=== PATIENT | female | born 1965 | race Caucasian/White ===

== ENCOUNTER 2020-12-11 07:13 | Outpatient (CLI) | payer OTHER, SELFPAY ==
[2020-12-11 07:55] LABS: Glucose 116 mg/dL (65-105)
== END 2020-12-11 07:14 | disposition home or self-care (01) ==
PROVIDERS: PCP Family Medicine; Visit Provider Nurse Practitioner Family
DX: R73.09 Other abnormal glucose (principal)
CPT/HCPCS: 36415; 82607; 82947

== ENCOUNTER 2023-02-12 07:23 | Outpatient (CLI) | payer OTHER, SELFPAY ==
[2023-02-12 08:43] LABS: Hematocrit 41.3 % (37.0-47.0); Hemoglobin 13.6 g/dL (12.0-15.0); Mean Corpuscular HGB Conc 32.9 g/dl (32-36); Mean Corpuscular Hemoglobin 28.9 pg (26-34); Mean Corpuscular Volume 87.7 fl (80-100); Mean Platelet Volume 10.9 fl (7.4-10.4); Platelet Count Result 240 k/mm3 (150-375); Red Blood Count 4.71 M/mm3 (4.2-5.4); Red Cell Distribution Width 13.9 % (11.5-14.5); White Blood Count 4.9 K/mm3 (4.5-10.0)
[2023-02-12 09:08] LABS: Alanine Aminotransferase 27 U/L (6-35); Albumin Level 4.4 g/dL (3.5-5.1); Alkaline Phosphatase 81 U/L (38-126); Anion Gap 6 mmol/L (8-16); Aspartate Amino Transferase 31 U/L (14-36); Bilirubin,Total 0.7 mg/dL (0.2-1.3); Blood Urea Nitrogen 14 mg/dL (7-17); Calcium 8.7 mg/dL (8.4-10.2); Carbon Dioxide 31 mmol/L (22-30); Chloride 103 mmol/L (98-107); Cholesterol 133 mg/dL (0-200); Estimated Glomerular Filt Rate > 60; Glucose 110 mg/dL (65-110); HDL Direct 37 mg/dL; Potassium 4.2 mmol/L (3.4-5.0); Sodium 140 mmol/L (137-145); Triglycerides 105 mg/dL (<150)
[2023-02-12 09:19] LABS: LDL Cholesterol Direct 74 mg/dL
== END 2023-02-12 07:24 | disposition home or self-care (01) ==
PROVIDERS: PCP Family Medicine; Visit Provider Nurse Practitioner Family
DX: E78.5 Hyperlipidemia, unspecified (principal); R73.09 Other abnormal glucose; E55.9 Vitamin D deficiency, unspecified; E53.8 Deficiency of other specified B group vitamins; F41.9 Anxiety disorder, unspecified
CPT/HCPCS: 36415; 80053; 80061; 82306; 82607; 83036; 85027

== ENCOUNTER 2023-04-15 06:02 | Day surgery (SDC) | payer OTHER, SELFPAY ==
[2023-03-01 13:28] VITALS: BMI 33.5
[2023-03-30 10:50] VITALS: BMI 33.5
--- NOTE | 2023-04-14 13:49 | WPDANESEPPF ---
Anes - Initial Pre Proc Eval Procedure: Operation Date: 04/15/23 07:30 Proposed Procedures p Screening Colonoscopy - Jordan Arango MD Date/Time: 04/14/23 13:49 Surgeon: Jordan Arango MD Pre Op Diagnosis: Neoplasm Screening Patient Data Age: 57 Gender: F Height: 1.6 m Weight: 86 kg Allergies Allergy/AdvReac Type Severity Reaction Status Date / Time cephalexin Allergy Mild anxiety Verified 04/15/23 06:16 ciprofloxacin Allergy Mild Anxiety Verified 04/15/23 06:16 nitrofurantoin Allergy Mild anxiety Verified 04/15/23 06:16 fluoxetine Allergy Unknown Anxiety Verified 04/15/23 06:16 trimethoprim Allergy Unknown Anxiety Verified 04/15/23 06:16 Home Medications Medication Instructions Recorded Confirmed Type alprazolam 1 mg tablet,extended 1 mg PO DAILY 02/11/23 04/15/23 History release 24 hr (Xanax XR) estradiol 0.01% (0.1 mg/gram) 1 g vaginal 2XW #42.5 grams 02/11/23 04/15/23 Rx vaginal cream estradiol-norethindrone acet 0.5 1 tablet PO DAILY #84 tabs 02/11/23 04/15/23 Rx mg-0.1 mg tablet omeprazole 40 mg capsule,delayed 40 mg PO DAILY #90 caps 02/11/23 04/15/23 Rx release rosuvastatin 40 mg tablet 40 mg PO DAILY #90 tabs 02/11/23 04/15/23 Rx solifenacin 10 mg tablet 10 mg PO DAILY #90 tabs 02/11/23 04/15/23 Rx sulfamethoxazole 800 See Rx Instructions PO .COMPLEX 02/11/23 04/15/23 Rx mg-trimethoprim 160 mg tablet #15 tabs (Bactrim DS) semaglutide 0.25 mg or 0.5 mg (2 0.25 mg (0.368 mL) subcut WEEKLY 02/17/23 04/15/23 Rx mg/3 mL) subcutaneous pen injector #3 mL (Ozempic) cholecalciferol (vitamin D3) 125 125 mcg PO DAILY 03/30/23 04/15/23 History mcg (5,000 unit) tablet (Vitamin D3) cholecalciferol (vitamin D3) 125 125 mcg PO DAILY 03/30/23 04/15/23 History mcg (5,000 unit) tablet (Vitamin D3) vitamin B complex (B 1 tablet PO DAILY 03/30/23 04/15/23 History Complex-Vitamin B12 tablet) Patient hx anesthesia problems: none Family hx anesthesia problems: none Results Review: All pre-operative results and documents have been reviewed as part of the pre-operative evaluation. [facility] Past Medical History Medical History Abnormal weight gain Acute non-recurrent maxillary sinusitis Acute UTI Amenorrhea BMI 32.0-32.9,adult BMI 33.0-33.9,adult BMI greater than 30 Dietary counseling and surveillance (06/01/16) Elevated glucose Encounter for screening for lipoid disorders Hot flashes due to menopause Mixed hyperlipidemia Preoperative evaluation to rule out surgical contraindication Routine physical examination Screening for diabetes mellitus Screening for thyroid disorder Unspecified urinary incontinence Family History Family History Father Hypertension Family history of coronary artery disease Family history of kidney disease Family history of diabetes mellitus in first degree relative Family history of heart disease in male family member before age 55 Hyperlipidemia Mother Hypertension Hyperlipidemia Sibling Hypertension Family history of diabetes mellitus in first degree relative Social History Social History Smoking status: Never smoker Alcohol intake: current Drinks per week: 6 Substance use: never Substance use type: does not use Lack of Transportation: No Lack of Food: Never True Current Housing: I Have Housing Concerned About Future Housing: No Difficulty Paying Gas/Electric Bills: No Difficulty Paying for Meds: No Currently Unemployed: No Education: Master's Degree or Higher Difficulty w/ Childcare or Family Care: No Living arrangements: with family Occupation/Education: occupation 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
--- NOTE | 2023-04-14 21:46 | PM.HPGS ---
History of Present Illness History of Present Illness Consent: Risks, benefits, and alternatives have been discussed and questions answered. Patient agrees to proceed with procedure. Chief complaint: Neoplasm Screening Narrative: Lila Briggs is a 57 year old female who is referred for colon cancer screening.She had polyp removed in 2012 Review of Systems Review of Systems: All systems reviewed & are unremarkable except as noted in HPI and below PMFSH Past Medical History Medical History Abnormal weight gain Acute non-recurrent maxillary sinusitis Acute UTI Amenorrhea BMI 32.0-32.9,adult BMI 33.0-33.9,adult BMI greater than 30 Dietary counseling and surveillance (06/01/16) Elevated glucose Encounter for screening for lipoid disorders Hot flashes due to menopause Mixed hyperlipidemia Preoperative evaluation to rule out surgical contraindication Routine physical examination Screening for diabetes mellitus Screening for thyroid disorder Unspecified urinary incontinence Family History Family History Father Hypertension Family history of coronary artery disease Family history of kidney disease Family history of diabetes mellitus in first degree relative Family history of heart disease in male family member before age 55 Hyperlipidemia Mother Hypertension Hyperlipidemia Sibling Hypertension Family history of diabetes mellitus in first degree relative Social History Social History Smoking status: Never smoker Alcohol intake: current Drinks per week: 6 Substance use: never Substance use type: does not use Lack of Transportation: No Lack of Food: Never True Current Housing: I Have Housing Concerned About Future Housing: No Difficulty Paying Gas/Electric Bills: No Difficulty Paying for Meds: No Currently Unemployed: No Education: Master's Degree or Higher Difficulty w/ Childcare or Family Care: No Living arrangements: with family Occupation/Education: occupation 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 by the patient): Female Spiritual care concerns: No Meds Home Medications and Allergies Home Medications Medication Instructions Recorded Confirmed Type alprazolam 1 mg tablet,extended 1 mg PO DAILY 02/11/23 04/15/23 History release 24 hr (Xanax XR) estradiol 0.01% (0.1 mg/gram) 1 g vaginal 2XW #42.5 grams 02/11/23 04/15/23 Rx vaginal cream estradiol-norethindrone acet 0.5 1 tablet PO DAILY #84 tabs 02/11/23 04/15/23 Rx mg-0.1 mg tablet omeprazole 40 mg capsule,delayed 40 mg PO DAILY #90 caps 02/11/23 04/15/23 Rx release rosuvastatin 40 mg tablet 40 mg PO DAILY #90 tabs 02/11/23 04/15/23 Rx solifenacin 10 mg tablet 10 mg PO DAILY #90 tabs 02/11/23 04/15/23 Rx sulfamethoxazole 800 See Rx Instructions PO .COMPLEX 02/11/23 04/15/23 Rx mg-trimethoprim 160 mg tablet #15 tabs (Bactrim DS) semaglutide 0.25 mg or 0.5 mg (2 0.25 mg (0.368 mL) subcut WEEKLY 02/17/23 04/15/23 Rx mg/3 mL) subcutaneous pen injector #3 mL (Ozempic) cholecalciferol (vitamin D3) 125 125 mcg PO DAILY 03/30/23 04/15/23 History mcg (5,000 unit) tablet (Vitamin D3) cholecalciferol (vitamin D3) 125 125 mcg PO DAILY 03/30/23 04/15/23 History mcg (5,000 unit) tablet (Vitamin D3) vitamin B complex (B 1 tablet PO DAILY 03/30/23 04/15/23 History Complex-Vitamin B12 tablet) Allergies Allergy/AdvReac Type Severity Reaction Status Date / Time cephalexin Allergy Mild anxiety Verified 04/15/23 06:16 ciprofloxacin Allergy Mild Anxiety Verified 04/15/23 06:16 nitrofurantoin Allergy Mild anxiety Verified 04/15/23 06:16 fluoxetine Allergy Unknown Anxiety Verified 04/15/23 06:16 trimethoprim Allergy Unknown Anxiety Walt
[2023-04-15 06:18] VITALS: BP 155/86; PULSE 80; RESP 16; TEMP 36.8; O2SAT 98
[2023-04-15] MEDS: LACTATED RINGERS 1,000 ML 150 ML IV CONT (06:30)
[2023-04-15 07:39] VITALS: BP 114/66; PULSE 64; RESP 16; O2SAT 99
[2023-04-15 07:49] VITALS: BP 112/73; PULSE 66; RESP 16; O2SAT 99
[2023-04-15 07:59] VITALS: BP 109/80; PULSE 64; RESP 16; O2SAT 100
--- NOTE | 2023-04-15 10:49 | WPDANESPN ---
Anes - Prog Note Post-Op Date/Time: 04/15/23 10:49 Cardiovascular status: normal Respiratory status: normal Airway patency: baseline Mental status: baseline Post-Op hydration status: normal Vital Signs: Last Vital Signs Temp 36.8 C 04/15/23 06:18 Pulse 64 04/15/23 07:59 Resp 16 04/15/23 07:59 BP 109/80 04/15/23 07:59 Pulse Ox 100 04/15/23 07:59 O2 Del Method Room Air 04/15/23 07:59 Pain Score (VAS): 0 I/O: Intake & Output 04/14/23 04/15/23 04/15/23 23:59 07:59 15:59 Intake Total 100 Balance 100 Post-procedural complaints: none Patient Feedback: Patient satisfied with anesthetic care. Other Findings: Patient vital signs back to baseline. Patient denies nausea and vomiting. Patient's pain under control. Patient OK for discharge.
== END 2023-04-15 08:05 | disposition home or self-care (01) ==
PROVIDERS: PCP Nurse Practitioner Family; Visit Provider Internal Medicine Gastroenterology
PROC: 0DJD8ZZ Inspection of Lower Intestinal Tract, Via Natural or Artificial Opening Endoscopic (ICD-10-PCS; CPT 45378; principal; 2023-04-15 07:30)
DX: Z12.11 Encounter for screening for malignant neoplasm of colon (principal); Z86.010 Personal history of colon polyps
CPT/HCPCS: 45378

== ENCOUNTER 2024-02-29 06:58 | Outpatient (CLI) | payer OTHER, SELFPAY ==
[2024-02-29 08:07] LABS: Hematocrit 43.8 % (37.0-47.0); Hemoglobin 14.3 g/dL (12.0-15.0); Mean Corpuscular HGB Conc 32.6 g/dl (32-36); Mean Corpuscular Hemoglobin 29.5 pg (26-34); Mean Corpuscular Volume 90.3 fl (80-100); Mean Platelet Volume 10.7 fl (7.4-10.4); Platelet Count Result 225 k/mm3 (150-375); Red Blood Count 4.85 M/mm3 (4.2-5.4); Red Cell Distribution Width 12.9 % (11.5-14.5); White Blood Count 6.3 K/mm3 (4.5-10.0)
[2024-02-29 08:28] LABS: Alanine Aminotransferase 36 U/L (6-35); Albumin Level 4.6 g/dL (3.5-5.1); Alkaline Phosphatase 62 U/L (38-126); Anion Gap 6 mmol/L (4-12); Aspartate Amino Transferase 34 U/L (14-36); Bilirubin,Total 1.2 mg/dL (0.2-1.3); Blood Urea Nitrogen 19 mg/dL (7-17); Calcium 9.2 mg/dL (8.4-10.2); Carbon Dioxide 28 mmol/L (22-30); Chloride 103 mmol/L (98-107); Cholesterol 182 mg/dL (0-200); Estimated Glomerular Filt Rate > 60; Glucose 95 mg/dL (65-110); HDL Direct 50 mg/dL; Potassium 3.9 mmol/L (3.4-5.0); Sodium 137 mmol/L (137-145); Triglycerides 142 mg/dL (<150)
[2024-02-29 08:39] LABS: LDL Cholesterol Direct 108 mg/dL
[2024-02-29 09:32] LABS: Vitamin D 25 Hydroxy 50.7 ng/mL
== END 2024-02-29 06:59 | disposition home or self-care (01) ==
LOC: ANHLAB 07:00
PROVIDERS: PCP Family Medicine; Visit Provider Nurse Practitioner Family
DX: E78.5 Hyperlipidemia, unspecified (principal); F41.9 Anxiety disorder, unspecified; R63.5 Abnormal weight gain; E55.9 Vitamin D deficiency, unspecified
CPT/HCPCS: 36415; 80053; 80061; 82306; 84443; 85027

== ENCOUNTER 2025-03-01 06:50 | Outpatient (CLI) | payer OTHER, SELFPAY ==
--- OUTSIDE RECORDS SUMMARY | 2025-03-01 06:54 | XMS_ITS | Referral Summary ---
Author Organization [facility] Address [address] [place] [address] Care Team Providers Care Biomedical Engineering Internship Name Role Phone Shai Ho MD Primary Care Provider [phone] Allergies Active Allergy Reactions Criticality Noted Date Comments Sertraline Palpitations Low 10/07/2018 Medications ALPRAZolam XR (XANAX XR) 1 mg 24 hr tablet 1 06/20/2020 Active omeprazole (PriLOSEC) 40 mg capsule Take 40 mg by mouth daily Active solifenacin (VESIcare) 5 mg tablet Take 5 mg by mouth daily Active estradioL (ESTRACE) 0.5 mg tablet Take 0.5 mg by mouth daily Active cyanocobalamin (Vitamin B-12) 500 mcg tabletIndication s:Prevention of Vitamin B12 Deficiency Take 500 mcg by mouth daily Active vit D3-vit G-xosxlsfph-aygi [phone] qpti-iou-pu-mg tablet Take by mouth Active ergocalciferol, vitamin D2, 10 mcg (400 unit) tablet Take 25 mcg by mouth daily Active rosuvastatin (CRESTOR) 40 mg tablet Take 1 tablet (40 mg total) by mouth daily 30 tablet 11 09/23/2020 Active Active Problems Problem Noted Date Diagnosed Date Irregular menstrual cycle 02/08/2013 Pain in female pelvis 02/08/2013 Social History Tobacco Use Types Packs/Day Years Used Date Smoking Tobacco: Never Smokeless Tobacco: Never Comments Unknown Sex and Gender Information Value Date Recorded Sex Assigned at Not on file Legal Sex Female 10:15 AM ESTATE PLANNER Gender Identity Not on file Sexual Orientation Not on file Last Filed Vital Signs Vital Sign Reading Time Taken Comments Blood Pressure 131/95 09/27/2020 9:11 AM ESTATE PLANNER Pulse 91 09/23/2020 3:16 PM ESTATE PLANNER Temperature 36.1 C (96.9 F) 09/27/2020 9:11 AM ESTATE PLANNER Respiratory Rate 15 09/23/2020 3:16 PM ESTATE PLANNER Oxygen Saturation - - Inhaled Oxygen Concentration - - Weight 86.9 kg (191 lb 9.6 oz) 09/23/2020 3:16 P M ESTATE PLANNER Height 160 cm (5' 3) 09/23/2020 3:16 PM ESTATE PLANNER Body Mass Index 33.94 09/23/2020 3:16 PM ESTATE PLANNER Plan of Treatment Not on file Insurance [facility] Address: [facility] [id number] [place] [address] Care Teams Biomedical Engineering Internship Relationship Specialty Start Date End Date Shai Ho MD PCP - General Family Medicine 09/23/20
--- OUTSIDE RECORDS SUMMARY | 2025-03-01 06:54 | XMS_ITS | Clinical Summary ---
Author Organization [facility] Address [address] [place] [address] Care Team Providers Care School Adjustment Counselor Name Role Phone Shai Ho MD Primary Care Provider [phone] Allergies Active Allergy Reactions Criticality Noted Date [...] mcg by mouth daily Active vit D3-vit M-rbgglksdc-msjo [phone] rwia-upd-mt-mg tablet Take by mouth Active ergocalciferol, vitamin D2, 10 mcg (400 unit) tablet Take 25 mcg by mouth daily Active rosuvastatin (CRESTOR) 40 mg tablet Take 1 tablet (40 mg total) by mouth daily 30 tablet 11 09/23/2020 Active Active Problems Problem Noted Date Diagnosed Date Irregular menstrual cycle 02/08/2013 Pain in female pelvis 02/08/2013 Surgical History Surgery Date Site/Laterality Comments OVARY SURGERY Ovarian Surgery - (Added by Conv) Medical History Medical History Date Comments Anxiety disorder Anxiety - (Adde d by Conv) Hyperlipidemia Family History Medical History Relation Name Comments Coronary artery disease Father Diabetes type II Father Type 2 Diab etes Mellitus - (Added by TW Conv) Heart disease Father Heart Disease - (Added by TW Conv) Kidney failure Father Hyperlipidemia Mother Hypertension Mother Diabetes Sister 1 Hyperlipidemia Sister 2 Hypertension Sister 2 Relation Name Status Comments Father Other Mother Alive Sister 1 Alive Sister 2 Alive Social History Tobacco Use Types Packs/Day Years Used Date Smoking Tobacco: Never Smokeless Tobacco: Never Comments Unknown Sex and Gender Information Value Date Recorded Sex Assigned at Not on file Legal 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 ASSEMBLER Gender Identity Not on file Sexual Orientation Not on file Obstetrics History Last Filed Vital Signs Vital Sign Reading Time Taken Comments Blood Pressure 131/95 09/27/2020 9:11 AM SASH ASSEMBLER Pulse 91 09/23/2020 3:16 PM SASH ASSEMBLER Temperature 36.1 C (96.9 F) 09/27/2020 9:11 AM SASH ASSEMBLER Respiratory Rate 15 09/23/2020 3:16 PM SASH ASSEMBLER Oxygen Saturation - - Inhaled Oxygen Concentration - - Weight 86.9 kg (191 lb 9.6 oz) 09/23/2020 3:16 P M SASH ASSEMBLER Height 160 cm (5' 3) 09/23/2020 3:16 PM SASH ASSEMBLER Body Mass Index 33.94 09/23/2020 3:16 PM SASH ASSEMBLER Plan of Treatment Health Maintenance Due Date Last Done Comments Breast Cancer Screening-Mammogram 1966 Cervical Cancer Screening 1966 Colon Cancer Screening-Colonoscopy 1966 Depression Screening 1966 Hepatitis C Screening 1966 DTaP/Tdap/Td Vaccine (1 - Tdap) 1977 Hepatitis B Screening 1984 Regular Well Visit/Exam 18-64 1984 Zoster Vaccine (1 of 2) 2016 Covid-19 Vaccine ( - 2023-2 5 season) 2024 08/26/2021, 11/05/2020, 10/15/2020 Influenza Vaccine (Season Ended) 2025 Pneumococcal vaccine <65 Aged Out No longer eligible based on patient's age to complete this topic Insurance [facility]PPO Address: [place] [address] Care Teams School Adjustment Counselor Relationship Specialty Start Date End Date Shai Ho MD PCP - General Family Medicine 09/23/20
--- OUTSIDE RECORDS SUMMARY | 2025-03-01 06:54 | XMS_ITS | Clinical Summary ---
Author Organization [facility] Address [address] [address] Care Team Providers Care Wash Driller Helper Name Role Phone Shai Ho MD Primary Care Provider [phone] Source Comments [facility], formerly [facility],non-owned Affiliates and Associated Physician Practices is amultiple site organization consisting of ambulatory clinics and hospital sitesin [place], [place], [place] and [place]. This disclosure is being madepursuant to the Care Everywhere program and may not contain all information available regarding this patient. Last updated 18.[facility] Allergies Active Allergy Reactions Criticality Noted Date Comments Cephalexin Psychiatric Medium 06/15/2023 Ciprofloxacin Psychiatric Medium 06/15/2023 Fluoxetine Psychiatric Medium 06/15/2023 Sertraline Palpitations 10/07/2018 Medications * Be aware that medications may not be up to date on this document. Alwaysverify current medications with the patient. ALPRAZolam XR 24hr (Xanax XR) 1 MG tablet 3 Active Berberine-RedIs kNuxrbOpy-Z-Y (Ostera) TABS Active vitamin B-12 (Cyanocobalamin ) 500 MCG tablet Take 1 (one) tablet by mouth once daily Active Ergocalciferol (Vitamin D2) 10 MCG (400 UNIT) Take 25 mcg by mouth once daily Active estradiol (Estrace) 0.5 MG tablet Take 1 (one) tablet by mouth once daily Active estradiol (Estrace) 0.1 MG/GM vaginal cream 3 Active fluconazole (Diflucan) 150 MG tablet 150 MG ORALLY DAILY CAN REPEAT DOSE IN 72 HOURS IF SYMPTOMS PERSIST 3 Active estradiol-noret hindrone (Activella) 0.5-0.1 MG tablet 3 Active omeprazole (PriLOSEC) 40 MG capsule Take 1 (one) capsule by mouth once daily Active rosuvastatin (Crestor) 40 MG tablet 3 Active Ozempic, 0.25 or 0.5 MG/DOSE, 2 MG/3ML SOPN 3 Active solifenacin (Vesicare) 10 MG tablet 3 Active sulfamethoxazol e-trimethoprim (Bactrim DS; Septra DS) 800-160 MG tablet 1 TABLET ORALLY EVERY 12 HOURS FOR 7 DAYS FOR ACUTE TREATMENT OF UTI 3 Active Social History Tobacco Use Types Packs/Day Years Used Date Smoking Tobacco: Never Smokeless Tobacco: Never Alcohol Use Standard Drinks/Week Comments Yes 0 (1 standard drink = 0.6 oz pur e alcohol) Comments No Sex and Gender Information Value Date Recorded Sex Assigned at Not on file Legal Sex Female 8:47 AM CDT Gender Identity Not on file Sexual Orientation Not on file Last Filed Vital Signs Vital Sign Reading Time Taken Comments Blood Pressure 122/85 06/15/2023 9:24 AM CDT Pulse 78 06/15/2023 9:24 AM CDT Temperature 36.7 C (98.1 F) 06/15/2023 9:24 AM CDT Respiratory Rate - - Oxygen Saturation 96% 06/15/2023 9:24 AM CDT Inhaled Oxygen Concentration - - Weight - - Height - - Body Mass Index - - Plan of Treatment Health Maintenance Due Date Last Done Comments COLOGUARD (AGES 45-75) - COLON CA SCREENING 1966 COLON MONITORING 1966 COLONOSCOPY - COLON CA SCREENING 1966 CT COLONOGRAPHY - COLON CA SCREENING 1966 Colorectal Cancer Screening 1966 FIT - COLON CA SCREENING 1966 FLEX SIG - COLON CA SCREENING 1966 PAP SMEAR 1966 HIV SCREENING 1981 HEPATITIS C SCREENING 09/17/1984 DTAP/TDAP/TD VACCINES (1 - Tdap) 1985 HEPATITIS B VACCINE (1 of 3 - 19+ 3-dose series) 1985 PNEUMOCOCCAL VACCINE 50+ (1 of 1 - PCV) 2016 ZOSTER VACCINE (1 of 2) 2016 COVID-19 VACCINE (1 - 2023- season) 2024 DEPRESSION SCREENING 09/20/2024 INFLUENZA VACCINE (Season Ended) 2025 MAMMOGRAM 03/14/2026 03/14/2024, 02/2023, 01/20/2022, Additional history exists HIB VACCINE Aged Out No longer eligi ble based on patient's age to complete this topic HPV VACCINE Aged Out No longer eligi ble based on patient's age to complete this topic MENINGOCOCCAL (Group B) VACCINE SHARED DECISION-MAKING Aged Out No longer eligible based on patient's age to complete this topic MENINGOCOCCAL GROUPS A/C/Y/W VACCINE Aged Out No longer eligible based on patient's age to complete this topic Procedures Procedure Name Priority Date/Time Associated Diagnosis Comments MAMMO BILAT IMPLANT SCREEN W GRZEGORZ Routine 03/14/2024 9:27 AM CDT Screening mammogram for breast cancer from Last 3 Months or Most Recently Relevant to Health Maintenance Results * MAMMO BILAT IMPLANT SCREEN W GRZEGORZ (03/14/2024 9:27 AM CDT) Anatomical Region Laterality Modality Breast Bilateral Mammography 03/14/2024 9:59 AM CDT Impressions 03/14/2024 10:18 AM CDT : Benign mammogram, without evidence of malignancy. RECOMMENDATION: Screening mammography in one year, pending no interval breast concerns. Patient will receive the examination results by lay letter. OVERALL ASSESSMENT: BI-RADS CATEGORY 2: BENIGN. > Dictated by Marychuy Carney MD (vice president of procurement). IDenise MD have personally reviewed and interpreted this examination/study. > Interpreting Provider: Denise Shelby MD on 03/14/2024 10:18 AM Narrative 03/14/2024 10:18 AM CDT EXAMINATIONS: BILATERAL DIGITAL SCREENING MAMMOGRAM WITH IMPLANTS AND BILATERAL BREAST TOMOSYNTHESIS WITH CAD LOCATION: [facility] EXAM DATE: 03/14/2024 HISTORY: Screening. History of breast augmentation. No family history of breast cancer. RISK ASSESSMENT CALCULATION: Patient completed a breast cancer risk assessment during her appointment 03/14/2024. Based upon the information she provided and her mammographic breast density, her lifetime risk of developing breast cancer is 10 % (Average Risk <15%; Intermediate / Moderate Risk 15-19; High Risk > 20%). Risk assessment based upon the BRCAPRO model. COMPARISON: Compare with prior breast imaging studies back to 10/10/2007, with the most recent dated 02/23/2023. TECHNIQUE: Bilateral synthetic 2-D digital mammogram images and bilateral digital breast tomosynthesis (3D) were obtained and reviewed in the craniocaudal and mediolateral oblique projections with the breast implants displaced. Bilateral craniocaudal and mediolateral oblique conventional full field digital images were also obtained to include the bilateral breast implants. . A total of 8images obtained. Computer-aided detection (CAD) was utilized. BREAST PARENCHYMAL COMPOSITION: Category B: There are scattered areas of fibroglandular density. FINDINGS: There are subpectoral silicone breast implants, which limit evaluation of the breast parenchyma There are no suspicious findings or evidence of malignancy on mammography. No change from prior. Shaiamira Ho MD MAMMO ORDERABLES Final Result from Last 3 Months or Most Recently Relevant to Health Maintenance Insurance [facility] Address: [address] [address] Care Teams Wash Driller Helper Relationship Specialty Start Date End Date Shai Ho MD [address] [place] [address] PCP - General Family Medicine 10/07/18
[2025-03-01 07:42] LABS: Hematocrit 42.4 % (37.0-47.0); Hemoglobin 14.2 g/dL (12.0-15.0); Mean Corpuscular HGB Conc 33.5 g/dl (32-36); Mean Corpuscular Hemoglobin 29.6 pg (26-34); Mean Corpuscular Volume 88.5 fl (80-100); Platelet Count Result 223 k/mm3 (150-375); Red Blood Count 4.79 M/mm3 (4.2-5.4); Red Cell Distribution Width 12.6 % (11.5-14.5); White Blood Count 5.2 K/mm3 (4.5-10.0)
[2025-03-01 07:57] LABS: Alanine Aminotransferase 26 U/L (6-35); Albumin Level 4.3 g/dL (3.5-5.1); Alkaline Phosphatase 61 U/L (38-126); Anion Gap 8 mmol/L (4-12); Aspartate Amino Transferase 34 U/L (14-36); Bilirubin,Total 0.7 mg/dL (0.2-1.3); Blood Urea Nitrogen 15 mg/dL (7-17); Calcium 9.4 mg/dL (8.4-10.2); Carbon Dioxide 29 mmol/L (22-30); Chloride 102 mmol/L (98-107); Cholesterol 170 mg/dL (0-200); Estimated Glomerular Filt Rate > 60; Glucose 102 mg/dL (65-110); HDL Direct 48 mg/dL; Potassium 3.8 mmol/L (3.4-5.0); Sodium 139 mmol/L (137-145); Total Protein 7.3 g/dL (6.3-8.2); Triglycerides 151 mg/dL (<150)
[2025-03-01 08:08] LABS: LDL Cholesterol Direct 89 mg/dL
[2025-03-01 08:31] LABS: Hemoglobin A1C 5.6 % (<5.7)
[2025-03-01 08:58] LABS: Vitamin D 25 Hydroxy 53.6 ng/mL
== END 2025-03-01 06:51 | disposition home or self-care (01) ==
LOC: ANHLAB 06:52
PROVIDERS: PCP Family Medicine; Visit Provider Nurse Practitioner Family
DX: F41.9 Anxiety disorder, unspecified (principal); E78.5 Hyperlipidemia, unspecified; E55.9 Vitamin D deficiency, unspecified; R03.0 Elevated blood-pressure reading, without diagnosis of hypertension; R73.03 Prediabetes
CPT/HCPCS: 36415; 80053; 80061; 82306; 83036; 84443; 85027